=== PATIENT | male | born 1945 | race Caucasian/White ===

== ENCOUNTER 2021-10-29 17:22 | Emergency (ER) | payer MEDICARE, SELFPAY ==
[2021-10-29 17:41] VITALS: BP 137/61; PULSE 92; RESP 18; TEMP 37; O2SAT 95; BMI 19.8
--- NOTE | 2021-10-29 18:04 | CRLHL7_ITS ---
For Patients: As a result of the Century Cures Act, medical imaging exams and procedure reports are released immediately into your electronic medical record. You may view this report before your referring provider. If you have questions, please contact your health care provider. INDICATION: Coughing blood. TECHNIQUE: Chest 2 views. COMPARISON: April 02, 2021. FINDINGS: Cardiovascular and mediastinum: Heart size and vasculature are normal in caliber and appearance. Lungs and pleural spaces: Redemonstrated patchy opacities in the right upper lobe, similar to slightly improved since the prior examination. In the interval, there is development of patchy ground-glass and consolidative opacities in the left upper lobe. Similar right-sided pleural effusion, moderate. Bones and soft tissues: No significant findings. IMPRESSION: Minimal improvement in the right upper lobe pulmonary opacities with interval development of new consolidative and ground-glass opacities in the left upper lobe, which may represent pulmonary hemorrhage, infection, or neoplasm.Essentially stable right-sided pleural effusion. Dictated by Sandra Enrique MD @ 10/29/2021 6:33:56 PM (Electronically Signed)
[2021-10-29 18:41] LABS: Basophils Absolute Auto 0.03 K/uL (0.00-0.30); Basophils Percent Auto 0.6 % (0.0-3.0); Hematocrit 39.1 % (37.0-53.0); Hemoglobin* 12.6 gm/dL (13.5-17.5); Immature Granulocytes Abs Auto 0.03 K/uL (0.00-0.30); Lymphocytes Percent Auto 33.1 % (20-44); Mean Corpuscular HGB Conc 32 gm/dL (32-36); Mean Corpuscular Hemoglobin 30 pg (26-34); Mean Corpuscular Volume 92 fL (80-100); Monocytes Percent Auto 12.6 % (0.0-11.0); Neutrophils Absolute Auto 2.57 K/uL (1.7-7.0); Neutrophils Percent Auto 53.1 % (42.0-72.0); Platelet Count* 252 K/uL (140-440); RDW Coefficient of Variation % 13.4 % (11.5-15.5); Red Blood Count 4.26 m/uL (4.30-5.90); White Blood Count* 4.84 K/uL (4.50-11.00)
[2021-10-29 18:45] LABS: Chloride* 103 mmol/L (96-114); Sodium* 134 mmol/L (135-149)
[2021-10-29 18:48] LABS: Est. Creatinine Clearance* 59.53; Estimated Glomerular Filt Rate 77.52
[2021-10-29 18:49] LABS: Blood Urea Nitrogen* 30 mg/dL (7-30); Calcium* 8.3 mg/dL (8.4-10.6); Carbon Dioxide* 22 mmol/L (20-32); Glucose* 98 mg/dL (60-115)
[2021-10-29 19:00] LABS: Slide Review Reflex No
--- NOTE | 2021-10-29 19:30 | ED_ITS ---
HPI - General Adult General Date Seen: 10/29/21 Chief complaint: Unspecified Complaint, Adult Stated complaint: COUGING UP BLOOD,MASS IN LEFT LUNG,WEAK Time Seen by Provider: 10/29/21 17:30 Source: patient and family Mode of arrival: ambulatory Limitations: no limitations History of Present Illness HPI narrative: Patient is a 76-year-old male with severe COPD presents with worsening hemop tysis. About one year ago he was admitted to [facility] with empyema. He was treated with long-term antibiotics and a chest tube. He had pulmonary follow-up for several months and then nothing further. He was seen in the clinic about five weeks ago with occasional hemoptysis and was scheduled to see pulmonology. Apparently Dr. Mendoza who had seen him before unable to see him until at least mid to late November. Four days ago the amount of blood increase significantly. There is now hemoptysis each time he coughs and sometimes as much as a small palm full. He has been progressively more short of breath. Related Data Home Medications Medication Instructions Recorded Confirmed albuterol sulfate 2.5 mg/3 mL mg 10/29/21 (0.083 %) solution for nebulization budesonide-formoterol HFA 80 INHALATION 10/29/21 mcg-4.5 mcg/actuation aerosol inhaler Allergies Allergy/AdvReac Type Severity Reaction Status Date / Time No Known Drug Allergies Allergy Verified 10/29/21 17:41 Review of Systems Status of ROS: Reports: 10 or more systems reviewed and unremarkable except as noted in History and below [facility] Medical History (Updated 10/29/21 @ 20:03 by Jae Doan MD) Empyema Hearing loss Surgical History (Updated 10/29/21 @ 20:03 by Jae Doan MD) Hx of appendectomy Hx of tonsillectomy Social History (Updated 10/29/21 @ 20:03 by Jae Doan MD) Narrative: , smoker, no alcohol, 2 kids, retired Smoking Status: Former smoker How often do you have a drink containing alcohol: monthly or less AUDIT-C Alcohol total score: 1 Non-prescribed substance use: denies use Exam 2 Const: Vital Signs, click to edit/add: Vital Signs - 24 hr 10/29/21 17:41 Temperature 98.6 F Pulse Rate [Right Pulse Oximeter] 92 Respiratory Rate 18 Blood Pressure [Ri ght Upper Arm] 137/61 Pulse Oximetry 95 Documenting provider has reviewed patient's vital signs: yes Common normals: oriented x3 General appearance: frail appearing Nutritional appearance: cachectic Orientation/consciousness: Yes awake, Yes oriented to person, Yes oriented to place and Yes oriented to time HENMT: Common normals: normocephalic and TM's normal bilaterally Head and scalp: normocephalic Tympanic membrane: TM's normal bilaterally Mouth: oral and palatal mucosa normal Throat: posterior oropharynx normal Chest: Common normals: inspection of chest normal Chest: symmetrical chest wall rise Resp: Effort & inspection: labored, audible wheezes and prolonged expiratory phase Auscultation: breath sounds absent on the right ( base) and diminished lung sounds Cardio: Common normals: regular rate, regular rhythm, S1 normal heart sound, S2 normal heart sound and peripheral pulses 2+ throughout Rate: regular rate Rhythm: regular rhythm Heart sounds: S1 normal and S2 normal Peripheral pulses: pulses 2+ throughout GI: Common normals: Normal to inspection, nondistended, normoactive bowel sounds present Extremity: Common normals: no pedal edema Neuro: Common normals: oriented x3 Sensorium/orientation: awake, oriented to person, oriented to place and oriented to time Course Course Hospital Course: Patient was seen and examined. Labs and a chest x-ray are ordered. He has been waiting for five weeks to see a tire layer in have a bronchoscopy done. Now his hemoptysis is daily and in much larger quantities. Reevaluation(s) Reevaluation #1: After checking with all four [facility] and several [facility] I was able to arrange for to the emergency department at [facility] with Dr. García accepting. The patient will be transported by his son and [id number]. Vital Signs Vital signs: Initial Vital Signs Temperature 98.6 F 10/29/21 17:41 Temperature Source Temporal Artery Scan 10/29/21 17:41 Pulse Rate 92 10/29/21 17:41 Respiratory Rate 18 10/29/21 17:41 Blood Pressure 137/61 10/29/21 17:41 Blood Pressure Mean 86 10/29/21 17:41 Blood Pressure Position Sitting 10/29/21 17:41 Pulse Oximetry 95 10/29/21 17:41 Oxygen Delivery Method 10/29/21 17:41 Vital Signs Temperature 98.6 F 10/29/21 17:41 Pulse Rate 92 10/29/21 17:41 Respiratory Rate 18 10/29/21 17:41 Blood Pressure 137/61 10/29/21 17:41 Pulse Oximetry 95 10/29/21 17:41 Temperature 98.6 F 10/29/21 17:41 Pulse Rate 92 10/29/21 17:41 Respiratory Rate 18 10/29/21 17:41 Blood Pressure 137/61 10/29/21 17:41 Pulse Oximetry 95 10/29/21 17:41 Medical Decision Making Lab Data Labs: Lab Results 10/29/21 10/29/21 Range/Units 18:20 18:20 WBC 4.84 (4.50-11.00) K/uL RBC 4.26 L (4.30-5.90) m/uL Hgb 12.6 L (13.5-17.5) gm/dL Hct 39.1 (37.0-53.0) % MCV 92 (80-100) fL MCH 30 (26-34) pg MCHC 32 (32-36) gm/dL RDW Coeff of Sonia 13.4 (11.5-15.5) % Plt Count 252 (140-440) K/uL Neut % (Auto) 53.1 (42.0-72.0) % Lymph % (Auto) 33.1 (20-44) % [place] % (Auto) 12.6 H (0.0-11.0) % Eos % (Auto) 0.0 (0.0-7.0) % Baso % (Auto) 0.6 (0.0-3.0) % Neut # (Auto) 2.57 (1.7-7.0) K/uL Lymph # (Auto) 1.60 (0.90-2.90) K/uL [place] # (Auto) 0.60 (0.00-0.90) K/UL Eos # (Auto) 0.00 (0.00-0.50) K/uL Baso # (Auto) 0.03 (0.00-0.30) K/uL Abs Immat Gran (auto) 0.03 (0.00-0.30) K/uL Sodium 134 L (135-149) mmol/L Potassium 4.0 (3.6-5.1) mmol/L Chloride 103 (96-114) mmol/L Carbon Dioxide 22 (20-32) mmol/L BUN 30 (7-30) mg/dL Creatinine 1.0 (0.5-1.5) mg/dL Estimated Creat Clear 59.53 Glucose 98 (60-115) mg/dL Calcium 8.3 L (8.4-10.6) mg/dL Discharge Plan Discharge Clinical Impression: Hemoptysis, Mass of left lung, COPD (chronic obstructive pulmonary disease) Patient Disposition: [facility] Condition: Stable Additional Instructions: Go to the emergency department at [facility]. The address is [address] [place] [address]
[2021-10-29 20:00] VITALS: BP 117/65; PULSE 83; RESP 30; O2SAT 95
--- NOTE | 2021-10-29 20:02 | ED.NURSE ---
Per MD, Pt will go to [facility] ED, accepted there as Pt. Pt is discharged and will go via private vehicle. IV to be left in per .
--- NOTE | 2021-10-29 20:34 | ED.NURSE ---
[facility]
== END 2021-10-29 20:30 | disposition short-term general hospital (02) ==
PROVIDERS: Emergency Provider Family Medicine; PCP Family Medicine
DX: R04.2 Hemoptysis (principal); R91.8 Other nonspecific abnormal finding of lung field; J44.9 Chronic obstructive pulmonary disease, unspecified
CPT/HCPCS: 36415; 71046; 80048; 85025; 99284; 99285

== ENCOUNTER 2022-01-15 17:28 | Outpatient (REF) | payer MEDICARE, SELFPAY | END 2022-01-15 17:29 | disposition home or self-care (01) | LOC: NPINS 17:28 | DX: A31.0 Pulmonary mycobacterial infection (principal); J44.1 Chronic obstructive pulmonary disease with (acute) exacerbation; R91.8 Other nonspecific abnormal finding of lung field; H91.93 Unspecified hearing loss, bilateral | CPT/HCPCS: 87015; 87116; 87158 ==

== ENCOUNTER 2022-01-22 11:07 | Outpatient (RCR) | payer MEDICARE, SELFPAY | END 2022-12-25 11:50 | disposition home or self-care (01) | LOC: LAB 11:07 | PROVIDERS: PCP Family Medicine | DX: R04.2 Hemoptysis (principal) | CPT/HCPCS: 36415; 87015; 87070; 87116; 87153; 87158; 87186 ==

== ENCOUNTER 2022-01-29 10:53 | Outpatient (REF) | payer MEDICARE, SELFPAY | END 2022-01-29 10:54 | disposition home or self-care (01) | LOC: NPINS 10:53 | DX: R04.2 Hemoptysis (principal) | CPT/HCPCS: 87015; 87116; 87158 ==

== ENCOUNTER 2022-07-08 09:37 | Outpatient (CLI) | payer MEDICARE, SELFPAY ==
[2022-07-08 14:16] LABS: Cholesterol* 162 mg/dL (90-199); HDL Cholesterol* 88 mg/dL (>=40); LDL Cholesterol Calculated 64 mg/dL (<100); Triglycerides* 48 mg/dL (40-149)
== END 2022-07-08 09:38 | disposition home or self-care (01) ==
PROVIDERS: PCP Family Medicine; Visit Provider Family Medicine
DX: Z00.00 Encounter for general adult medical examination without abnormal findings (principal); Z13.6 Encounter for screening for cardiovascular disorders; A31.0 Pulmonary mycobacterial infection
CPT/HCPCS: 80053; 80061; 85025

== ENCOUNTER 2023-07-13 10:00 | Outpatient (CLI) | payer MEDICARE, SELFPAY | END 2023-07-13 10:01 | disposition home or self-care (01) | PROVIDERS: PCP Family Medicine; Visit Provider Family Medicine | DX: R03.0 Elevated blood-pressure reading, without diagnosis of hypertension (principal); R04.2 Hemoptysis | CPT/HCPCS: 80048; 85025 ==

== ENCOUNTER 2024-05-31 10:53 | Outpatient (CLI) | payer MEDICARE, SELFPAY | END 2024-05-31 10:54 | disposition home or self-care (01) | LOC: FBOREF 10:53 | PROVIDERS: PCP Family Medicine; Visit Provider Family Medicine | DX: Z01.818 Encounter for other preprocedural examination (principal) | CPT/HCPCS: 80048; 85025 ==